=== PATIENT | male | born 1955 | race Hispanic/Latino ===

== ENCOUNTER 2018-07-08 07:28 | Day surgery (SDC) | payer OTHER ==
[2018-07-06 16:18] LABS: APPEARANCE,URINE Clear (CLEAR); BILIRUBIN,URINE Negative (NEGATIVE); COLOR,URINE Yellow (YELLOW); GLUCOSE, URINE (UA) Negative (NEGATIVE); KETONES,URINE Negative (NEGATIVE); LEUKOCYTE ESTERASE ,URINE Negative (NEGATIVE); NITRATE,URINE Negative (NEGATIVE); OCCULT BLOOD,URINE Negative (NEGATIVE); PH,URINE 6.5 (5.0-8.0); PROTEIN,URINE Negative (NEGATIVE)
[2018-07-06 16:21] LABS: BASOPHILS % (AUTO) 0.7 % (0.0-5.0); EOSINOPHILS % (AUTO) 5.5 % (0.0-8.0); HEMATOCRIT 40.9 % (42-54); LYMPHOCYTES % (AUTO) 30.4 % (21.0-51.0); MEAN CORPUSCULAR HEMOGLOBIN 31.4 pg (27.0-33.0); MEAN CORPUSCULAR HGB CONC 34.7 g/dL (32.0-36.0); MEAN CORPUSCULAR VOLUME 90.5 fL (79-99); MONOCYTES % (AUTO) 7.6 % (3.0-13.0); NEUTROPHILS % (AUTO) 55.8 % (40.0-77.0); NUCLEATED RED BLOOD CELLS 0.2 % (0.0-0.19); PLATELET COUNT (AUTO) 195 K/uL (130-400); RED BLOOD CELL COUNT(AUTO) 4.52 MIL/uL (4.50-6.20); RED CELL DISTRIBUTION WIDTH 14.3 % (11.0-15.5); WHITE BLOOD COUNT (AUTO) 7.2 K/uL (4.8-10.8)
[2018-07-06 16:33] LABS: CREATININE 0.8 mg/dL (0.5-1.5)
[2018-07-06 16:35] VITALS: BP 138/67
[2018-07-06 16:43] LABS: INR 0.96 (0.85-1.15); PARTIAL THROMBOPLASTIN TIME 27.3 SEC (26.3-35.5); PROTHROMBIN TIME 10.1 SEC (9.6-11.6)
[2018-07-08] VITALS (16 sets, daily range): BP systolic 116–144; BP diastolic 75–92
[~2018-07-08] VITALS: Ht 165.1 cm; Wt 87.3 kg
[2018-07-08] MEDS: CEFTRIAXONE SODIUM 1 GM IVP SCH ×2 (06:00→09:00)
[~2018-07-08 07:28] MED LIST: ARIP20TA PO; ASPI-1197 PO; BUPR100T5 PO; BUSP30TA2 PO; GENTAMICIN SULFATE 400 MG in SODIUM CHLORIDE 0.9% 100 ML IV SCH; MIRA50TA PO; MULT-1289 PO; PRAV40TA3 PO; SERT50TA12 PO
[2018-07-08] MEDS ORDERED: GENTAMICIN SULFATE 360 MG in SODIUM CHLORIDE 0.9% 100 ML IV SCH (07:56)
[2018-07-08] MEDS ORDERED: LACTATED RINGERS 1000ML 1,000 ML IV ONE (08:16)
[2018-07-08] MEDS ORDERED: DEXAMETHASONE SOD PHOSPHATE 10MG/ML 1ML VIAL ONE (08:52)
[2018-07-08] MEDS ORDERED: SUCCINYLCHOLINE 200MG/10ML SYR ONE (08:52)
[2018-07-08] MEDS ORDERED: LIDOCAINE PF 2% 5ML ABBOJECT ONE (08:52)
[2018-07-08] MEDS ORDERED: ROCURONIUM 10MG/1ML SYR 10 MG/ML ML ONE (08:53)
[2018-07-08] MEDS ORDERED: NEOSTIGMINE 5MG/5ML SYR IV ONE (08:53)
[2018-07-08] MEDS ORDERED: ONDANSETRON HCL 4 MG/2 ML VIAL ONE (08:53)
[2018-07-08] MEDS ORDERED: FENTANYL CITRATE PF 50 MCG/1 ML 2ML VIAL ONE (08:53)
[2018-07-08] MEDS ORDERED: PROPOFOL 10 MG/ML 20ML VIAL IV ONE (08:53)
[2018-07-08] MEDS ORDERED: GLYCOPYRROLATE 1 MG/5 ML SYRINGE ONE (08:53)
[2018-07-08] MEDS ORDERED: EPHEDRINE SULFATE 50 MG/ML AMPULE ONE (09:13)
[2018-07-08] MEDS ORDERED: PHENYLEPHRINE HCL 10 MG/ML 1ML VIAL IV ONE (09:38)
--- NOTE | 2018-07-08 12:20 | NUR ---
PT DISCHARGED HOME, TOLERATING FLUIDS WELL, AMBULATING WELL WITH STANDY-BY ASSISTANCE. DENIES ANY SEVERE PAIN, NAUSEA, OR DIZZINESS. PRIOR TO DISCHARGE PT SWITCHED TO LEG BAG AND INSTRUCTIONS GIVEN ON LEG BAG AND HARTMANN CARE. PT AND FAMILY REPORT UNDERSTANDING. LEG BAG DRAINING WELL, PALE [place]RIA URINE. PT INSTRUCTED TO MAKE SURE THE HARTMANN WAS DRAINING AND TO REPORT ANY SIGNIFICANT BLEEDING/CLOTS TO DR NEVAREZ. Addendum: 07/08/18 at 1618 by CARLO DIAZ RN RN PRESCRIPTION FOR PAIN MEDICATION AND ANTIBIOTIC GIVEN TO FAMILY MEMBER.
== END 2018-07-08 12:20 | disposition home or self-care (01) ==
LOC: DAH 07:28
PROVIDERS: ATTEND Urology
DX: N40.1 Benign prostatic hyperplasia with lower urinary tract symptoms (principal); R35.0 Frequency of micturition; R35.1 Nocturia; R33.8 Other retention of urine; R39.15 Urgency of urination; E78.5 Hyperlipidemia, unspecified; Z98.890 Other specified postprocedural states; Z79.899 Other long term (current) drug therapy; F31.9 Bipolar disorder, unspecified; Z79.01 Long term (current) use of anticoagulants
CPT/HCPCS: 36415; 52648; 80048; 81003; 85025; 85610; 85730; 87088; 93005; A4218; A4346; A4354; A4358; A4600; J0330; J0696; J1100; J1580; J2001; J2370; J2405; J2704; J3010; J3490 ×2; J7030; J7120; J2710

== ENCOUNTER → 2019-09-14 | Outpatient (CLI) | payer OTHER ==
[~2019-09-14] MED LIST changes: -GENTAMICIN SULFATE 400 MG in SODIUM CHLORIDE 0.9% 100 ML IV SCH
== END | disposition home or self-care (01) ==
LOC: OIH 11:17
PROVIDERS: ATTEND Family Medicine
DX: M17.12 Unilateral primary osteoarthritis, left knee (principal)
CPT/HCPCS: 73562

== ENCOUNTER 2023-07-23 06:55 | Day surgery (SDC) | payer OTHER, MEDICARE ==
[2023-07-17 09:47] LABS: BASOPHILS # (AUTO) 0.04 K/uL (0.00-0.20); BASOPHILS % (AUTO) 0.6 % (0.0-5.0); EOSINOPHILS # (AUTO) 0.59 K/uL (0.00-0.70); EOSINOPHILS % (AUTO) 9.1 % (0.0-8.0); HEMATOCRIT 42.6 % (42-54); IMMATURE GRANULOCYTE ABSOLUTE 0.05 K/uL (0-1); LYMPHOCYTES # (AUTO) 1.8 K/uL (1.0-4.8); LYMPHOCYTES % (AUTO) 28.2 % (21.0-51.0); MEAN CORPUSCULAR HEMOGLOBIN 29.4 pg (27.0-33.0); MEAN CORPUSCULAR HGB CONC 32.4 g/dL (32.0-36.0); MEAN CORPUSCULAR VOLUME 90.6 fL (79-99); MONOCYTES # (AUTO) 0.5 K/uL (0.1-1.0); MONOCYTES % (AUTO) 7.6 % (3.0-13.0); NEUTROPHILS # (AUTO) 3.5 K/uL (1.8-7.7); NEUTROPHILS % (AUTO) 53.7 % (40.0-77.0); PLATELET COUNT (AUTO) 107 K/uL (130-400); RED CELL DISTRIBUTION WIDTH 13.6 % (11.0-15.5); WHITE BLOOD COUNT (AUTO) 6.5 K/uL (4.8-10.8)
[2023-07-17 09:51] LABS: APPEARANCE,URINE CLEAR (CLEAR); BILIRUBIN,URINE NEGATIVE (NEGATIVE); COLOR,URINE YELLOW (YELLOW); GLUCOSE, URINE (UA) NEGATIVE (NEGATIVE); KETONES,URINE NEGATIVE (NEGATIVE); LEUKOCYTE ESTERASE ,URINE NEGATIVE Leu/uL (NEGATIVE); NITRATE,URINE NEGATIVE (NEGATIVE); OCCULT BLOOD,URINE NEGATIVE (NEGATIVE); PH,URINE 6.5 (5.0-8.0); PROTEIN,URINE NEGATIVE (NEGATIVE); UROBILINOGEN,URINE 0.2 mg/dL (0.2-1.0)
[2023-07-17 09:52] LABS: ADD UA MICROSCOPIC NO
[2023-07-17 09:59] LABS: CREATININE 0.8 mg/dL (0.5-1.3); POTASSIUM 4.2 mmol/L (3.5-5.1)
[2023-07-17 10:00] VITALS: BP 146/78; PULSE 64; RESP 18
[~2023-07-23] VITALS: Ht 160 cm; Wt 87.6 kg
[2023-07-23] VITALS (17 sets, daily range): BP systolic 103–136; BP diastolic 53–95; PULSE 68–85; RESP 14–18
[~2023-07-23 06:55] MED LIST changes: +LISI2.5T13 PO; +SERT-439 PO; -SERT50TA12 PO
[2023-07-23] MEDS ORDERED: BOTULINUM TOXIN TYPE A 100 UNITS/VIAL INJ ONE ×2 (07:00→08:00)
[2023-07-23] MEDS ORDERED: CEFTRIAXONE 1G VIAL ONE (07:16)
[2023-07-23] MEDS ORDERED: LACTATED RINGERS 1000ML 1,000 ML IV ONE (07:16)
[2023-07-23] MEDS ORDERED: FAMOTIDINE 20MG VIAL IV ONE (07:22)
[2023-07-23] MEDS ORDERED: LIDOCAINE PF 100MG/5ML (2%) SYRINGE 5ML ONE (07:25)
[2023-07-23] MEDS ORDERED: FENTANYL CITRATE PF 50 MCG/1 ML 2ML VIAL ONE (07:26)
[2023-07-23] MEDS ORDERED: 0.9%NACL 10ML VIAL ONE (07:26)
[2023-07-23] MEDS ORDERED: PROPOFOL 10 MG/ML 20ML VIAL IV ONE (07:26)
[2023-07-23] MEDS ORDERED: DEXAMETHASONE SOD PHOSPHATE 10MG/ML 1ML VIAL ONE (08:52)
[2023-07-23] MEDS ORDERED: ONDANSETRON 4MG INJ ONE (08:53)
[2023-07-23] MEDS ORDERED: GLYCOPYRROLATE 0.2 MG/ML 5 ML VIAL ONE (08:57)
[2023-07-23] MEDS ORDERED: EPHEDRINE SULFATE 50 MG/ML AMPULE ONE (09:03)
[2023-07-23] MEDS: BOTULINUM TOXIN TYPE A 100 UNITS/VIAL INJ ONE (09:08)
== END 2023-07-23 11:00 | disposition home or self-care (01) ==
LOC: DAH 06:55
PROVIDERS: ATTEND Urology
DX: R35.1 Nocturia (principal); R35.0 Frequency of micturition; E78.5 Hyperlipidemia, unspecified; I10 Essential (primary) hypertension; F32.A Depression, unspecified; Z83.3 Family history of diabetes mellitus; Z79.82 Long term (current) use of aspirin; Z82.49 Family history of ischemic heart disease and other diseases of the circulatory system; Z87.891 Personal history of nicotine dependence; Z79.899 Other long term (current) drug therapy
CPT/HCPCS: 80048; 85025; 87088; 81003; 36415; 93005; 52287; A6260; A4663; J7120 ×2; C1758; J3490 ×3; J3010; J1100; J2001; J0696; J2704; J2405; J0585 ×2; A4358; A4215 ×2; A4223; A4222; A4221; A4600

== ENCOUNTER 2024-03-03 06:56 | Day surgery (SDC) | payer OTHER, MEDICARE ==
[2024-02-29 10:25] LABS: APPEARANCE,URINE CLEAR (CLEAR); BILIRUBIN,URINE NEGATIVE (NEGATIVE); COLOR,URINE LIGHT-YELLOW (YELLOW); GLUCOSE, URINE (UA) NEGATIVE (NEGATIVE); KETONES,URINE NEGATIVE (NEGATIVE); LEUKOCYTE ESTERASE ,URINE NEGATIVE Leu/uL (NEGATIVE); NITRATE,URINE NEGATIVE (NEGATIVE); OCCULT BLOOD,URINE NEGATIVE (NEGATIVE); PH,URINE 5.5 (5.0-8.0); PROTEIN,URINE NEGATIVE (NEGATIVE); UROBILINOGEN,URINE 0.2 mg/dL (0.2-1.0)
[2024-02-29 10:28] LABS: ADD UA MICROSCOPIC NO
--- NOTE | 2024-02-29 10:29 | EKG ---
[facility] Test Date: 2024-02-29 Test Time: 11:20:38 Pat Name: AUGIE NORIEGA Department: [facility] Room: Gender: M Huller Operator: [id number] : 1955 Requested By: LEISA NEVAREZ Order Number: [id number] Reading MD: Shalonda Colbert Measurements Intervals [place] Rate: 60 P: 13 [place]: 156 QRS: 22 QRSD: 102 T: 67 QT: 416 QTc: 417 Interpretive Statements Sinus rhythm Compared to ECG 07/17/2023 08:25:09 No significant changes Electronically Signed On 02-29-2024 13:16:41 FLAP PRESSER by Shalonda Colbert Please click the below link to view image of tracing.
[2024-02-29 10:44] LABS: BASOPHILS # (AUTO) 0.04 K/uL (0.00-0.20); BASOPHILS % (AUTO) 0.5 % (0.0-5.0); EOSINOPHILS # (AUTO) 0.54 K/uL (0.00-0.70); EOSINOPHILS % (AUTO) 7.2 % (0.0-8.0); IMMATURE GRANULOCYTE ABSOLUTE 0.03 K/uL (0-1); LYMPHOCYTES # (AUTO) 2.1 K/uL (1.0-4.8); MEAN CORPUSCULAR HEMOGLOBIN 29.9 pg (27.0-33.0); MEAN CORPUSCULAR HGB CONC 32.6 g/dL (32.0-36.0); MEAN CORPUSCULAR VOLUME 91.7 fL (79-99); MONOCYTES # (AUTO) 0.7 K/uL (0.1-1.0); MONOCYTES % (AUTO) 9.5 % (3.0-13.0); NEUTROPHILS # (AUTO) 4.1 K/uL (1.8-7.7); NEUTROPHILS % (AUTO) 54.4 % (40.0-77.0); PLATELET COUNT (AUTO) 179 K/uL (130-400); RED BLOOD CELL COUNT(AUTO) 4.58 MIL/uL (4.50-6.20); RED CELL DISTRIBUTION WIDTH 13.4 % (11.0-15.5); WHITE BLOOD COUNT (AUTO) 7.5 K/uL (4.8-10.8)
[2024-02-29 11:04] LABS: CREATININE 0.7 mg/dL (0.5-1.3); POTASSIUM 4.1 mmol/L (3.5-5.1)
[2024-02-29 16:53] VITALS: BP 139/78; PULSE 75; RESP 18; TEMP 97.5
[2024-03-03] VITALS (13 sets, daily range): BP systolic 111–131; BP diastolic 59–82; PULSE 67–82; RESP 12–18; TEMP 97–97.4
[~2024-03-03] VITALS: Ht 160 cm; Wt 87.0 kg
[~2024-03-03 06:56] MED LIST changes: -MIRA50TA PO
[2024-03-03] MEDS: cefTRIAXone 1G VIAL ONE (06:59)
[2024-03-03] MEDS ORDERED: dexaMETHasone SOD PHOSPHATE 10MG/ML 1ML VIAL ONE (07:50)
[2024-03-03] MEDS ORDERED: MIDAZOLAM HCL 1 MG/ML 2ML VIAL ONE (07:50)
[2024-03-03] MEDS ORDERED: ondanSETRON 4MG INJ ONE (07:50)
[2024-03-03] MEDS ORDERED: proPOFol 10 MG/ML 20ML VIAL IV ONE (07:50)
[2024-03-03] MEDS ORDERED: LIDOCAINE PF 100MG/5ML (2%) SYRINGE 5ML ONE (07:51)
[2024-03-03] MEDS ORDERED: FENTanyl CITRate PF 50 MCG/1 ML 2ML VIAL ONE (07:51)
[2024-03-03] MEDS ORDERED: FAMOTIDINE 20MG VIAL IV ONE (08:41)
[2024-03-03] MEDS ORDERED: ePHEDrine SULFate 50 MG/ML AMPULE ONE (08:56)
[2024-03-03] MEDS ORDERED: phenylEPHRINE HCL 10 MG/ML 1ML VIAL IV ONE (08:58)
[2024-03-03] MEDS: cefTRIAXone 1G VIAL IVPB ONE ×2 (09:02)
[2024-03-03] MEDS: BOTULINUM TOXIN TYPE A 100 UNITS/VIAL INJ ONE (09:08)
[2024-03-03] MEDS: LACTATED RINGERS 1000ML 1,000 ML IV ONE (09:10)
--- NOTE | 2024-03-03 09:37 | OP ---
DATE OF PROCEDURE: 03/03/2024 UROLOGIC OPERATIVE REPORT PREOPERATIVE DIAGNOSES: Severe urinary frequency, nocturia. POSTOPERATIVE DIAGNOSES: Severe urinary frequency, nocturia. OPERATION PERFORMED: Cystoscopy with Botox injection. ANESTHESIA: General. DESCRIPTION OF PROCEDURE: The patient is a 68-year-old male who presents with severe urinary frequency and nocturia, unrelieved with overactive bladder medications. The patient presents for a second Botox injection. The patient reported good results with his first injection, although the patient reported some return of his frequency after 4 months following the Botox injection. The patient has opted for a second injection. The risks of surgery were discussed to include bleeding, infection, urinary retention, failure to improve his urinary symptoms and possible continued urinary incontinence. Of note, the patient is on multiple depression medications which may influence his voiding habits. The patient reports understanding and agrees to proceed. The patient was given preoperative Rocephin. The patient was taken back to the operating room where general anesthesia was given. The patient was prepped and draped in a lithotomy position. A 22-Romanian cystoscope was placed into the bladder. The patient has had prior GreenLight laser prostatectomy changes and has an open prostatic urethra. Inspection of the bladder revealed no urothelial lesions. At this time, 100 units of Botox were reconstituted. Using a Coloplast injection needle, 20 detrusor muscle injections were performed throughout the bladder, sparing the trigone. There were no complications noted during the injections. The patient was subsequently extubated and taken to the recovery room in stable condition. The patient is to follow up in my office in approximately 2 weeks. If the Botox is not helpful, may consider an InterStim placement. TID: [id number] RECEIPT: [id number]
== END 2024-03-03 10:42 | disposition home or self-care (01) ==
LOC: DAH 06:56
PROVIDERS: ATTEND Urology
DX: R35.0 Frequency of micturition (principal); R35.1 Nocturia; R33.9 Retention of urine, unspecified; N32.81 Overactive bladder; E78.5 Hyperlipidemia, unspecified; F32.A Depression, unspecified; I10 Essential (primary) hypertension; Z79.899 Other long term (current) drug therapy
CPT/HCPCS: 80048; 85025; 87086; 81003; 36415; 93005; 52287; A6260; A4663; J7120 ×2; C1758; J3490 ×2; J3010; J1100; J2003; J0696 ×2; J2250; J2704; J2405; J2371; J0585; A4358; A4215 ×2; A4223 ×2; A4213; A4222; A4221; A4216; A4600